=== PATIENT | male | born 1970 | race Caucasian/White ===

== ENCOUNTER 2018-08-05 21:24 | Emergency (ER) | payer SELFPAY ==
[~2018-08-05 21:24] MED LIST: ACE3 PO; ACE500 PO; AUG875 PO; CYC10 PO; DIA5 PO; HYDR-3078 PO; LOR5 PO; NO ROUTINE MEDS; PER PO
--- NOTE | 2018-08-05 21:46 | ER Report ---
History and Physical Time Seen By MD: 21:46 HPI/ROS CHIEF COMPLAINT: Right knee pain HISTORY OF PRESENT ILLNESS: 47-year-old male claims he is 2 weeks post arthroscopic surgery to his right knee by orthopedics down at [place]. Patient states he was out working when he stepped in a gopher hole and injured his right knee. He describes a twisting injury. He notes his knee is swollen. Chin is wearing no supportive brace. REVIEW OF SYSTEMS: Respiratory: No cough, no dyspnea. Cardiovascular: No chest pain, no palpitations. Gastrointestinal: No vomiting, no abdominal pain. Musculoskeletal: As above Allergies: Coded Allergies: Ibuprofen (Verified Allergy, Severe, RASH, THROAT SWELLING, 06/29/10) Penicillins (Verified Allergy, Mild, VOMIT, 06/29/10) Home Meds Discontinued Reported Medications Hydrocodone Bit/Acetaminophen (Hydrocodone-Apap 5-500 Mg Tab) 1 Each Tablet, 1 EACH PO Q4-6H PRN, #15 0 Refills 06/29/10 Acetaminophen (Tylenol) 500 Mg Tab, 1000 MG PO Q4-6H, 0 Refills 06/29/10 Discontinued Scripts Hydrocodone Bit/Acetaminophen (HYDROCODON-ACETAMINOPHEN 5-325) 1 Each Tablet, 1 EACH PO Q4-6H PRN for PAIN, #8 TAKE ONE TABLET BY MOUTH EVERY 4-6 HOURS NEEDED FOR PAIN Prov:JENN FUENTES DO 08/05/18 Reviewed Nurses Notes: Yes Old Medical Records Reviewed: Yes Hx Substance Use Disorder: No Hx Alcohol Use: No Constitutional Vital Sign - Last 24 Hours 08/05/18 08/05/18 08/05/18 08/05/18 21:24 21:43 21:45 21:54 Temp 97.7 Pulse 159 70 75 Resp 17 B/P (MAP) 135/85 135/85 (102) Pulse Ox 90 95 94 O2 Delivery Room Air 08/05/18 08/05/18 08/05/18 22:00 22:24 22:30 Pulse 95 B/P (MAP) 107/90 (96) 99/75 (83) Pulse Ox 97 Physical Exam General appearance: Alert no distress. Respiratory: Chest is non tender, lungs are clear to auscultation. Cardiac: Regular rate and rhythm Extremities: Examination of the right knee reveals a small effusion, mild warmth to the joint. There are 2 well-healed surgical scars noted in the lateral medial aspect. Distal neurovascular functions intact. All ligaments appear intact on gentle stressing. Patient was unable tolerate Jhoan's maneuver. DIFFERENTIAL DIAGNOSIS: After history and physical exam differential diagnosis was considered for sprain, strain, fracture, dislocation, contusion, drug- seeking behavior. Medical Decision Making EKG/Imaging Imaging X-ray: Right knee, 3 views was obtained. I viewed the images myself on the PACS system. My interpretation of the images is: No fracture no dislocation or malalignment. The radiologist interpretation had no clinically significant variation from this interpretation. ED Course/Re-evaluation ED Course Patient was admitted to an examination room. H&P was done. The differential diagnoses was considered. Diagnostic x-rays were performed. A review of [place] prescription drug monitoring system reveal no prescriptions. [facility] prescription drug monitoring system shows numerous prescription the last being dispensed. On 08/24/18 for 60 oxycodone 5 mg. With estimated usage of 2 weeks. Patient's approximate 8 days into his course. He should stop medication left. According to the Rx that was provided. There are numerous other prescriptions prior to this from multiple locations. There is a suspicion of doctor shopping. Patient's address is listed as [place] or [place]. It is unusual that he is here in [place] seeking prescriptions. I confronted the patient with the information and advised him that I would not provide any opiate prescriptions for him. He is advised to follow-up with his orthopedic surgeon for further treatment and pain management. Patient advised to take ibuprofen and Tylenol for pain relief. Decision to Disposition Date: Aug 05, 2018 Decision to Disposition Time: 22:15 Depart Departure Latest Vital Signs Vital Signs Date Time Temp Pulse Resp B/P (MAP) Pulse Ox O2 Delivery O2 Flow Rate FiO2 08/05/18 22:30 99/75 (83) 08/05/18 22:24 95 97 08/05/18 21:43 97.7 17 Room Air Impression: Primary Impression: Right knee injury Additional Impression: Status post arthroscopy of knee Condition: Improved Disposition: HOME OR SELF-CARE Patient Instructions: Knee Sprain (ED) Additional Instructions: No opiate prescriptions will be prescribed at this emergency Department for you. You need to follow up with your orthopedic surgeon for appropriate pain management. Follow-up with your orthopedist early next week Problem Qualifiers Primary Impression: Right knee injury Encounter type: initial encounter Qualified Codes: S89.91XA - Unspecified injury of right lower leg, initial encounter JENN FUENTES DO Aug 05, 2018 21:46
[2018-08-05] MEDS ORDERED: ACET/HYDROC 5/325MG TH ER ONLY 2 TAB/BOTTLE PO ONE (22:15)
[2018-08-05] MEDS ORDERED: LOR5/325 PO (22:17)
[2018-08-05 22:30] VITALS: BP 99/75
--- NOTE | 2018-08-05 22:51 | RADIOLOGY IMAGING REPORT ---
FACILITY: [facility] [place] PATIENT NAME: Wily Garrett : 1970 MR: [id number] V: [id number] EXAM DATE: ORDERING PHYSICIAN: JENN FUENTES TECHNOLOGIST: Location: [facility] [place] Patient: Wily Garrett : 1970 Visit/Account:[id number] Date of Sevice: 08/05/2018 INDICATION: Injury, effusion, 2 weeks postop arthroscopy. EXAM DATE: 08/05/2018 10:13 PM COMPARISON: None. FINDINGS: 3 views right knee. Mineralization is normal. No acute alignment abnormality or fracture. Mild media l compartment arthrosis, likely progressed compared to 2009. No definite joint effusion. Tiny fabel la. IMPRESSION: Mild medial compartment arthrosis with no apparent acute osseous abnormality of the righ t knee. Report Dictated By: Vaughn Ponce MD at 08/05/2018 10:43 PM Report E-Signed By: Vaughn Ponce MD at 08/05/2018 10:46 PM WSN:[id number]
== END 2018-08-05 22:27 | disposition home or self-care (01) ==
LOC: ER 22:04
DX: S89.91XA Unspecified injury of right lower leg, initial encounter (principal)
CPT/HCPCS: 99283